=== PATIENT | female | born 1955 | race Caucasian/White ===

== ENCOUNTER 2016-11-27 14:48 | Observation (INO) | payer OTHER, BC ==
[2016-11-27 15:04] VITALS: BMI 19.0
[2016-11-27] MEDS ORDERED: SODIUM CHLORIDE 1,000 ML IV ONE (15:08)
[2016-11-27] MEDS ORDERED: ONDANSETRON 4 MG/2 ML VIAL ONE ×2 (15:13→15:26)
[2016-11-27] MEDS ORDERED: MAG HYDROX/AL HYDROX/SIMETH 355 ML ORAL.SUSP PO ONE (15:21)
[2016-11-27] MEDS ORDERED: FAMOTIDINE 20 MG/50 ML IVPB 20 MG in PREMIX 50 IVPB ONE (15:21)
--- NOTE | 2016-11-27 15:23 | PDOC ---
History of Present Illness - General History Source: Patient, Old Records Exam Limitations: No Limitations - History of Present Illness Initial Comments: 11/27/16 16:18 The patient is a 61 year old female, with a significant past medical history of cirrhosis, hepatitis C, DMII, GERD, hepatic encephalopathy, thrombocytopenia, previous broken left jaw, polysubstance abuse (alcohol and cocaine) and anxiety , who presents to the emergency department with nausea, vomiting and epigastric pain for the past week. The patient describes her epigastric pain as a burning sensation that radiates up her throat. She states that she initially began vomiting a clear liquid, but states that it has since turned to a black color. She reports that her last bowel movement was yesterday and it was normal. The patient denies fever, chills, diarrhea, melena or bpr. The patient denies chest pain or shortness of breath. She denies a past history of ulcers. She is requesting Dilaudid. Allergies: None reported. Social History: Polysubstance abuse (alcohol and cocaine). Past Surgical History: Left Knee Surgery ( x 4) , Jaw Surgery, and Tonsillectomy. PCP: Dr. 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 Dawson <Radha Rodriguez - Last Filed: 11/27/16 17:08> - History of Present Illness Travel History: No <Lawrence Marcos - Last Filed: 11/27/16 17:38> - General Chief Complaint: Nausea/Vomiting Stated Complaint: GI DISTRESS Time Seen by Provider: 11/27/16 15:02 Past History <Radha Rodriguez - Last Filed: 11/27/16 17:08> - Past Medical History Anemia: (THROMBOCYTOPENIA) Asthma: No Cancer: No Cardiac Disorders: No CVA: No COPD: No CHF: No Dementia: No Diabetes: Yes (IDDM) GI Disorders: Yes (PORTAL GASTROPATHY;GERD) Disorders: No HTN: No Hypercholesterolemia: No Liver Disease: Yes (ALCOHOLIC CIRRHOSIS; HEPATIC ENCEPHALOPATHY;) Seizures: No Thyroid Disease: No - Surgical History Abdominal Surgery: Yes (egd and colonoscopy 1 year ago) Appendectomy: No Cardiac Surgery: No Cholecystectomy: No Lung Surgery: No Neurologic Surgery: No Orthopedic Surgery: Yes (left knee surgery times 4) - Immunization History Immunization Up to Date: Yes - Psycho/Social/Smoking Cessation Hx Anxiety: No Suicidal Ideation: No Smoking Status: No Smoking History: Never smoked Have you smoked in the past 12 months: No Number of Cigarettes Smoked Daily: 0 Cigars Per Day: 0 Hx Alcohol Use: No (RECOVERING ALCOHOLIC) Drug/Substance Use Hx: Yes Substance Use Type: Alcohol, Cocaine Hx Substance Use Treatment: Yes <Lawrence Marcos - Last Filed: 11/27/16 17:38> - Past Medical History Allergies/Adverse Reactions: Allergies Allergy/AdvReac Type Severity Reaction Status Date / Time No Known Allergies Allergy Verified 11/02/16 05:15 Home Medications: Ambulatory Orders Insulin Lispro [Humalog] 0 unit SQ QID PRN 02/10/14 Alprazolam [Xanax] 0.25 mg PO HS PRN #7 tablet 02/12/14 Insulin (Levemir) [Levemir Flexpen -] 0 units SQ DAILY 12/05/14 Omeprazole [Prilosec] 20 mg PO BID #0 capsule. 12/08/14 Levofloxacin [Levaquin] 750 mg PO DAILY #10 tab 11/04/16 Magnesium Oxide [Mag-Ox -] 800 mg PO DAILY #4 tablet 11/04/16 Ranitidine [Zantac -] 150 mg PO DAILY #30 tablet 11/04/16 Review of Systems - Review of Systems Able to Perform ROS?: Yes Comments:: 11/27/16 16:18 CONSTITUTIONAL: No reported: Fever, Chills, Diaphoresis, Generalized Weakness, Malaise, Loss of Appetite HEENT: No reported: Rhinorrhea, Nasal Congestion, Throat Pain, Throat Swelling, Difficulty Swallowing, Mouth Swelling, Ear Pain, Eye Pain, Visual Changes CARDIOVASCULAR: No reported: Chest Pain, Syncope, Palpitations, Irregular Heart Rate, Lightheadedness, Peripheral Edema RESPIRATORY: No reported: Cough, Shortness of Breath, SOB with Exertion, Orthopnea, Wheezing , Stridor, Hemoptysis GASTROINTESTINAL: Reported: +Nausea, vomiting, epigastric pain No reported: Abdominal Distension, Diarrhea, Constipation, Melena, Hematochezia GENITOURINARY: No reported: Dysuria, Frequency, Urgency, Hesitancy, Flank Pain, Genital Pain MUSCULOSKELETAL: No reported: Myalgia, Arthralgia, Joint Swelling, Back pain, Neck Pain SKIN: No reported: Rash, Itching, Pallor HEMATOLOGIC/IMMUNOLOGIC: No reported: Easy Bleeding, Easy Bruising, Lymphadenopathy, Frequent infections ENDOCRINE: No reported: Unexplained Weight Gain, Unexplained Weight Loss, Heat Intolerance , Cold Intolerance NEUROLOGIC: No reported: Headache, Focal Weakness, Paresthesias, Vertigo, Lightheadedness, Unsteady Gait, Seizure, Mental Status Changes, Incontinence PSYCHIATRIC: No reported: Anxiety, Depression <Radha Rodriguez - Last Filed: 11/27/16 17:08> *Physical Exam - Vital Signs Last Vital Signs Temp Pulse Resp BP Pulse Ox 98.2 F 100 H 20 135/95 100 11/27/16 15:02 11/27/16 15:02 11/27/16 15:02 11/27/16 15:02 11/27/16 15:02 - Physical Exam Comments: 11/27/16 16:18 GENERAL: The patient is awake, alert, and fully oriented. Nontoxic - in no acute distress. HEAD: Normocephalic, atraumatic. EYES: Extraocular movements intact, sclera anicteric, conjunctiva clear. ENT: Normal voice, moist mucous membranes. NECK: Normal range of motion, supple. LUNGS: Breath sounds equal, clear to auscultation bilaterally. No wheezes, no rhonchi, no rales. HEART: Regular rate and rhythm, without murmur, rub or gallop. ABDOMEN: Mild epigastric tenderness. Soft, normoactive bowel sounds. No guarding, no rebound. No CVA tenderness. EXTREMITIES: Normal range of motion, no edema. No clubbing or cyanosis. No cords , erythema, or tenderness. NEUROLOGICAL: No facial asymmetry. Normal speech. PSYCH: Normal mood, normal affect. SKIN: Warm, dry, normal turgor. RECTAL EXAM: Brown stool. No hemorrhoids, no bleeding, no melena. <Radha Rodriguez - Last Filed: 11/27/16 17:08> - Vital Signs Last Vital Signs Temp Pulse Resp BP Pulse Ox 98.2 F 100 H 20 135/95 100 11/27/16 15:02 11/27/16 15:02 11/27/16 15:02 11/27/16 15:02 11/27/16 15:02 <Lawrence Marcos - Last Filed: 01/22/17 17:38> Heart Score/ECG Review - ECG Impressions Comment:: 11/27/16 15:26 Twelve-lead EKG was performed and reviewed by me. There is normal sinus rhythm with a normal rate. rate of 100 The axis is normal. qt interval of 497 There is normal R wave progression There are no ST or T wave abnormalities. <Lawrence Marcos - Last Filed: 11/27/16 17:38> ED Treatment Course - LABORATORY CBC & Chemistry Diagram: 11/27/16 15:13 11/27/16 15:13 - ADDITIONAL ORDERS Additional order review: Laboratory Results 11/27/16 15:13 Urine Color Yolie Urine Appearance Clear Urine pH 7.0 Ur Specific [place] 1.026 Urine Protein Negative Urine Glucose (UA) Negative Urine Ketones Trace H Urine Blood Negative Urine Nitrite Negative Urine Bilirubin Negative Urine Urobilinogen 4.0 e.u/dl H Ur Leukocyte Esterase Negative 11/27/16 15:13 RBC 4.11 D MCV 89.1 MCHC 33.0 RDW 16.3 H MPV 10.6 D Neutrophils % 68.0 Lymphocytes % 21.4 D Monocytes % 8.5 D Eosinophils % 1.4 D Basophils % 0.7 - Medications Given in the ED: ED Medications Discontinued Medications Generic Name Dose Route Start Last Admin Trade Name Freq PRN Reason Stop Dose Admin Al Hydroxide/Mg Hydroxide 30 ml 11/27/16 15:21 11/27/16 15:31 Mylanta Suspension - PO 11/27/16 15:22 30 ml ONCE ONE Administration <Radha Rodriguez - Last Filed: 11/27/16 17:08> - LABORATORY CBC & Chemistry Diagram: 11/27/16 15:13 11/27/16 15:13 <Lawrence Marcos - Last Filed: 11/27/16 17:38> Medical Decision Making - Medical Decision Making 11/27/16 16:[address] Dawson at at 16:59. Referred to answering service, awaiting callback. Dr. Ga, covering for Dr. Dawson, returned call at 15:07. Case discussed. <Radha Rodriguez - Last Filed: 11/27/16 17:08> - Medical Decision Making 11/27/16 15:22 61y F hx of dm, hcv cirrhosis, gerd, thrombocytopenia, polycusbstance abuse presents with complaint of burnin gepigastric pain that is radiating up to her throat, associated with vomiting that was originally clear and was recently black in color - no associated diarrhea, melena, bpr. on exam the pt is in no acute distress, abd nontender suspect gastritis/gerd will ck labs to r/o anemia, pancreatitis, will ck stool guaiac to r/o blood. will treat symptomatically with pepcid/maalox/zofran?/fluids screening ekg for acs 11/27/16 17:06 The patient's blood work was reviewed the patient is currently not anemic However as the patient does have an extensive history of alcohol abuse, as well as thrombocytopenia with a platelet level of 31, and guaiac positive stool pt given dose of protonox 40mg IV 11/27/16 17:17 case d/w lucia burns and dr. ga agreed with observation due to concerns per dr. ga (covering for [facility]) states that pt is a service case [facility] pt well appearing, in no distress vitals normal Case discussed in detail with admitting physician including history, physical exam and ancillary studies. Admitting physician has assumed care for the patient, will follow all pending diagnostics and will complete the evaluation and treatment. A portion of this note was documented by scribe services under my direction. I have reviewed the details of the note, within reason, and agree with the documentation with the following case summary and management plan written by me <Lawrence Marcos - Last Filed: 11/27/16 17:38> *DC/Admit/Observation/Transfer - Attestations Scribe Attestion: 11/27/16 15:31 Documentation prepared by Radha Rodriguez, acting as medical administrative specialist for Lawrence Marcos MD. <Radha Rodriguez - Last Filed: 11/27/16 17:08> - Discharge Dispostion Admit: Yes <Lawrence Marcos - Last Filed: 11/27/16 17:38> Diagnosis at time of Disposition: Thrombocytopenia Gastritis Qualifiers: Gastritis type: alcoholic Chronicity: acute Gastritis bleeding: with bleeding Qualified Code(s): K29.21 - Alcoholic gastritis with bleeding - Referrals Referrals: Marshal Rossi MD [Primary Care Provider] -
[2016-11-27 15:25] LABS: BASOPHIL 0.7 % (0-2.0); EOSINOPHIL 1.4 % (0-4.5); MCH 29.4 pg (25.7-33.7); MEAN CELL VOLUME 89.1 fl (80-96); MEAN PLT VOLUME 10.6 fl (7.5-11.1); RDW 16.3 % (11.6-15.6); WHITE BLOOD COUNT 3.2 K/mm3 (4.0-10.0)
[2016-11-27] MEDS ORDERED: FAMOTIDINE 20 MG/50 ML IVPB 50 ML IVPB ONE (15:26)
[2016-11-27] MEDS ORDERED: MAG HYDROX/AL HYDROX/SIMETH 30 ML UNIT-DOSE CUP ONE (15:26)
[2016-11-27 15:27] LABS: URINE APPEARANCE CLEAR; URINE BILIRUBIN NEGATIVE (NEGATIVE); URINE BLOOD NEGATIVE (NEGATIVE); URINE COLOR AMBER; URINE GLUCOSE (UA) NEGATIVE (NEGATIVE); URINE KETONE TRACE (NEGATIVE); URINE LEUK ESTERASE NEGATIVE (NEGATIVE); URINE NITRITE NEGATIVE (NEGATIVE); URINE PROTEIN NEGATIVE (NEGATIVE); URINE UROBILINOGEN 4.0 E.U/dl E.U./dl (0.2-1.0)
[2016-11-27 15:30] LABS: PLATELET COUNT 31 K/MM3 (134-434)
[2016-11-27 16:05] LABS: ALBUMIN 3.6 g/dl (3.4-5.0); ALK PHOS 117 U/L (45-117); ANION GAP 12 (8-16); BILIRUBIN,TOTAL 2.6 mg/dL (0.2-1.0); CALCIUM 8.9 mg/dL (8.5-10.1); CO2 24 mmol/L (21-32); CREATININE 0.9 mg/dL (0.55-1.02); GLUCOSE,RANDOM 218 mg/dL (74-106); SGPT/ALT 50 U/L (12-78); TOT PROT 7.1 g/dl (6.4-8.2)
[2016-11-27] MEDS ORDERED: HYDROmorphone HCL CARPU-JECT 1 MG/1 ML DISP.SYRIN IVPUSH ONE (16:37)
[2016-11-27] MEDS ORDERED: HYDROmorphone HCL CARPU-JECT 1 MG/1 ML DISP.SYRIN ONE ×2 (16:41→22:21)
[2016-11-27 16:44] LABS: MAGNESIUM 1.6 mg/dL (1.8-2.4); SGOT/AST 98 U/L (15-37)
[2016-11-27] MEDS ORDERED: PANTOPRAZOLE SODIUM 40 MG in SODIUM CHLORIDE 100 ML IVPB ONE ×2 (17:05→18:47)
[2016-11-27] MEDS ORDERED: PANTOPRAZOLE SODIUM 40 MG VIAL ONE (17:11)
[2016-11-27 17:35] LABS: INR 1.39 (0.82-1.09); PROTHROMBIN TIME (PATIENT) 15.4 SEC (9.98-11.88)
[2016-11-27] MEDS: SODIUM CHLORIDE 1,000 ML IV SCH (18:44)
--- NOTE | 2016-11-27 18:54 | HP ---
CHIEF COMPLAINT: Hematemesis. PCP: Flo Araya MD HISTORY OF PRESENT ILLNESS: The patient is a 61 year old female with a significant PMH of cirrhosis, hepatitis C, DM type 2, GERD, hepatic encephalopathy, thrombocytopenia, who presents with nausea, vomiting and epigastric pain for the past week. She started vomiting clear liquid a week ago and 3 days ago she had multiple episodes of brownish vomit. No more episodes since then. The patient describes her epigastric pain as a burning sensation that radiates up to her throat. She denies change in bowel habits, blood in stool, diarrhea, constipation, back pain. She reports that her last bowel movement was yesterday and it was normal. The patient denies fever, chills, chest pain, cough or shortness of breath. She denies dysuria, increased urgency, frequency. ER course was notable for: (1)Lipase (2)Plt, Mg (3)FOBT, EKG PAST MEDICAL HISTORY: cirrhosis, hepatitis C, DM type 2, GERD, hepatic encephalopathy, thrombocytopenia, previous broken jaw, polysubstance abuse (alcohol and cocaine) , anxiety PAST SURGICAL HISTORY: Left Knee Surgery ( x 4) , Jaw Surgery, and Tonsillectomy Social History: Smoking:Denies Alcohol:Former drinker, quit last year Drugs:used to take cocaine Family History: Mother: HTN, Alzheimer's Father;Cancer Allergies: No Known Allergies Allergy (Verified 11/02/16 05:15) HOME MEDICATIONS: Medication Instructions Recorded Insulin Lispro [Humalog] 0 unit SQ QID PRN 02/10/14 Alprazolam [Xanax] 0.25 mg PO HS PRN #7 tablet 02/12/14 Insulin (Levemir) [Levemir Flexpen 0 units SQ DAILY 12/05/14 -] Omeprazole [Prilosec] 20 mg PO BID #0 capsule. 12/08/14 Levofloxacin [Levaquin] 750 mg PO DAILY #10 tab 11/04/16 Magnesium Oxide [Mag-Ox -] 800 mg PO DAILY #4 tablet 11/04/16 Ranitidine [Zantac -] 150 mg PO DAILY #30 tablet 11/04/16 REVIEW OF SYSTEMS CONSTITUTIONAL: Absent: fever, chills, diaphoresis, generalized weakness, malaise, loss of appetite, weight change HEENT: Absent: rhinorrhea, nasal congestion, throat pain, throat swelling, difficulty swallowing, mouth swelling, ear pain, eye pain, visual changes CARDIOVASCULAR: Absent: chest pain, syncope, palpitations, irregular heart rate, lightheadedness , peripheral edema RESPIRATORY: Absent: cough, shortness of breath, dyspnea with exertion, orthopnea, wheezing, stridor, hemoptysis GASTROINTESTINAL: Absent: abdominal pain, abdominal distension, nausea, vomiting, diarrhea, constipation, melena, hematochezia GENITOURINARY: Absent: dysuria, frequency, urgency, hesitancy, hematuria, flank pain, genital pain MUSCULOSKELETAL: Absent: myalgia, arthralgia, joint swelling, back pain, neck pain SKIN: Absent: rash, itching, pallor HEMATOLOGIC/IMMUNOLOGIC: Absent: easy bleeding, easy bruising, lymphadenopathy, frequent infections ENDOCRINE: Absent: unexplained weight gain, unexplained weight loss, heat intolerance, cold intolerance NEUROLOGIC: Absent: headache, focal weakness or paresthesias, dizziness, unsteady gait, seizure, mental status changes, bladder or bowel incontinence PSYCHIATRIC: Absent: anxiety, depression, suicidal or homicidal ideation, hallucinations. PHYSICAL EXAMINATION Vital Signs - 24 hr 11/27/16 15:02 Temperature 98.2 F Pulse Rate 100 H Respiratory 20 Rate Blood Pressure 135/95 O2 Sat by Pulse 100 Oximetry (%) GENERAL: Awake, alert, and fully oriented, in no acute distress. HEAD: Normal with no signs of trauma. EYES: Pupils equal, round and reactive to light, extraocular movements intact, sclera anicteric, conjunctiva clear. No lid lag. EARS, NOSE, THROAT: Ears normal, nares patent, oropharynx clear without exudates. Moist mucous membranes. NECK: Normal range of motion, supple without lymphadenopathy, JVD, or masses. LUNGS: Breath sounds equal, clear to auscultation bilaterally. No wheezes, and no crackles. No accessory muscle use. HEART: Regular rate and rhythm, normal S1 and S2 without murmur, rub or gallop. ABDOMEN: Soft, nontender, not distended, normoactive bowel sounds, no guarding, no rebound, no masses. No hepatomegaly or splenomegaly. MUSCULOSKELETAL: Normal range of motion at all joints. No bony deformities or tenderness. No CVA tenderness. UPPER EXTREMITIES: 2+ pulses, warm, well-perfused. No cyanosis. No clubbing. Cap refill <2 seconds. No peripheral edema. LOWER EXTREMITIES: 2+ pulses, warm, well-perfused. No calf tenderness. No peripheral edema. NEUROLOGICAL: Cranial nerves II-XII intact. Normal speech. Normal gait. PSYCHIATRIC: Cooperative. Good eye contact. Appropriate mood and affect. SKIN: Warm, dry, normal turgor, no rashes or lesions noted. Laboratory Results - last 24 hr 11/27/16 11/27/16 11/27/16 15:13 15:13 15:13 WBC 3.2 L D RBC 4.11 D Hgb 12.1 D Hct 36.6 D MCV 89.1 MCHC 33.0 RDW 16.3 H Plt Count 31 L* D MPV 10.6 D Neutrophils % 68.0 Lymphocytes % 21.4 D Monocytes % 8.5 D Eosinophils % 1.4 D Basophils % 0.7 INR Sodium 140 Potassium 3.8 Chloride 104 Carbon Dioxide 24 Anion Gap 12 BUN 23 H D Creatinine 0.9 D Creat Clearance w eGFR > 60 Random Glucose 218 H D Calcium 8.9 Magnesium 1.6 L Total Bilirubin 2.6 H D AST 98 H ALT 50 D Alkaline Phosphatase 117 Total Protein 7.1 Albumin 3.6 Lipase 65 L Urine Color Yolie Urine Appearance Clear Urine pH 7.0 Ur Specific Jolon 1.026 Urine Protein Negative Urine Glucose (UA) Negative Urine Ketones Trace H Urine Blood Negative Urine Nitrite Negative Urine Bilirubin Negative Urine Urobilinogen 4.0 e.u/dl H Ur Leukocyte Esterase Negative Stool Occult Blood Alcohol, Quantitative 11/27/16 11/27/16 11/27/16 16:30 17:15 17:15 WBC RBC Hgb Hct MCV MCHC RDW Plt Count MPV Neutrophils % Lymphocytes % Monocytes % Eosinophils % Basophils % INR 1.39 H Sodium Potassium Chloride Carbon Dioxide Anion Gap BUN Creatinine Creat Clearance w eGFR Random Glucose Calcium Magnesium Total Bilirubin AST ALT Alkaline Phosphatase Total Protein Albumin Lipase Urine Color Urine Appearance Urine pH Ur Specific Jolon Urine Protein Urine Glucose (UA) Urine Ketones Urine Blood Urine Nitrite Urine Bilirubin Urine Urobilinogen Ur Leukocyte Esterase Stool Occult Blood Positive Alcohol, Quantitative < 5.0 ASSESSMENT/PLAN: The patient is a 61 year old female with a significant PMH of cirrhosis, hepatitis C, DM type 2, GERD, hepatic encephalopathy, thrombocytopenia, who presents with nausea, vomiting and epigastric pain for the past week. She started vomiting clear liquid a week ago and 3 days ago she had multiple episodes of brownish vomit. No more episodes since then. The patient describes her epigastric pain as a burning sensation that radiates up to her throat. She is placed on observation for Upper GI bleed. Upper GI bleed: r/o Gastric ulcer/Gastritis/Pancreatitis/ACS -NPO -Protonix 40 mg IV Daily -GI consultation -f/u CBC -FOBT positive -monitor vitals -lipase elevated, no need tor amylase -Dilaudid 1 mg IVQ6H DM type 2: -ISS ACHS -BGM ACHS Thrombocytopenia; -monitor Hypomagnesemia: -supplemented in ED -f/u in AM DVT PPX: -SCDs -no Heparin due to bleeding GI PPX: on Protonix Disposition: Placed in observation Visit type - Emergency Visit Emergency Visit: Yes ED Registration Date: 11/27/16 Care time: The patient presented to the Emergency Department on the above date and was hospitalized for further evaluation of their emergent condition. - New Patient This patient is new to me today: Yes Date on this admission: 11/28/16 - Critical Care Critical Care patient: No
[2016-11-27 19:10] LABS: URINE MARIJUANA THC NEGATIVE ng/ml (CUTOFF=50)
--- NOTE | 2016-11-27 19:12 | PN ---
Teaching Attending Note Name of Resident: Darlyn Rojo ATTENDING PHYSICIAN STATEMENT I saw and evaluated the patient. I reviewed the resident's note and discussed the case with the resident. I agree with the resident's findings and plan as documented. SUBJECTIVE: This is a 61-year-old woman who presented to the ER complaining of epigastric pain with nausea and vomiting. She reports vomiting black fluid. She denies rectal bleeding, melena. OBJECTIVE: Vital Signs Period Temp Pulse Resp BP Sys/Dueñas Pulse Ox Last 24 Hr 98.2 F 100 20 135/95 100 HEART: S1 S2, RRR LUNGS: Clear ABDOMEN: Soft, non-distended, mild epigastric tenderness, normal BS EXTREMITIES: No edema ASSESSMENT AND PLAN: This is a 61-year-old woman with a history of cirrhosis, hepatitis C, alcohol abuse, type 2 DM, GERD, anxiety, HTN, thrombocytopenia who comes to the ER because of epigastric pain with nausea and vomiting. 1. Epigastric pain with nausea and vomiting - Likely secondary to gastritis - Possible PUD - Possible UGI bleed - Monitor hemoglobin - Protonix IV - NPO - IV fluid 2. Thrombocytopenia - Chronic secondary to liver disease - Monitor platelets 3. Cirrhosis 4. Hepatitis C 5. Hypertension 6. Type 2 diabetes mellitus - Hold Levemir - Fingersticks with Novolog sliding scale 7. GERD 8. Anxiety - Continue Xanax as needed 9. History of alcohol and cocaine abuse
[2016-11-27] MEDS ORDERED: PANTOPRAZOLE SODIUM 100 ML IVPB SCH (19:15)
[2016-11-27 22:10] LABS: MCH 29.3 pg (25.7-33.7); MCHC 32.6 g/dl (32.0-36.0); MEAN PLT VOLUME 10.5 fl (7.5-11.1); RDW 16.2 % (11.6-15.6); WHITE BLOOD COUNT 2.4 K/mm3 (4.0-10.0)
[2016-11-27 22:23] LABS: PLATELET COUNT 25 K/MM3 (134-434)
[2016-11-27] MEDS: HYDROmorphone HCL CARPU-JECT 1 MG/1 ML DISP.SYRIN IVPB PRN (22:26)
--- NOTE | 2016-11-27 23:18 | EKG ---
Test Reason : Blood Pressure : / mmHG Vent. Rate : 100 BPM Atrial Rate : 100 BPM P-R Int : 118 ms QRS Dur : 074 ms QT Int : 386 ms P-R-T Axes : 035 000 026 degrees QTc Int : 497 ms NORMAL SINUS RHYTHM POSSIBLE LEFT ATRIAL ENLARGEMENT PROLONGED QT ABNORMAL ECG WHEN COMPARED WITH ECG OF 04-NOV-2016 08:47, NO SIGNIFICANT CHANGE WAS FOUND Confirmed by BUNNY LEONARD MD ([id number]) on 11/27/2016 11:18:07 PM Referred By: Confirmed By:BUNNY LEONARD MD
[2016-11-27] MEDS: INSULIN SLIDING SCALE (NOVOLOG) 1 VIAL SQ SCH (23:35)
[2016-11-28] MEDS ORDERED: HYDROmorphone HCL CARPU-JECT 1 MG/1 ML DISP.SYRIN ONE ×3 (03:59→22:43)
[2016-11-28] MEDS: HYDROmorphone HCL CARPU-JECT 1 MG/1 ML DISP.SYRIN IVPB PRN ×3 (04:35→23:30)
[2016-11-28 07:53] LABS: CALCIUM 8.6 mg/dL (8.5-10.1); CREATININE 0.8 mg/dL (0.55-1.02)
[2016-11-28] MEDS: INSULIN SLIDING SCALE (NOVOLOG) 1 VIAL SQ SCH ×4 (09:42→23:57)
[2016-11-28] MEDS ORDERED: PANTOPRAZOLE SODIUM 100 ML IVPB ONE (09:43)
[2016-11-28] MEDS: SODIUM CHLORIDE 1,000 ML IV SCH ×2 (09:53→18:46)
[2016-11-28 14:08] LABS: MCH 29.9 pg (25.7-33.7); MCHC 33.1 g/dl (32.0-36.0); MEAN CELL VOLUME 90.4 fl (80-96); MEAN PLT VOLUME 9.2 fl (7.5-11.1); RDW 16.1 % (11.6-15.6)
[2016-11-28 14:17] LABS: WHITE BLOOD COUNT 1.8 K/mm3 (4.0-10.0)
[2016-11-28 14:18] LABS: PLATELET COUNT 18 K/MM3 (134-434)
--- NOTE | 2016-11-28 16:11 | PN ---
Teaching Attending Note Name of Resident: Darlyn Rojo ATTENDING PHYSICIAN STATEMENT I saw and evaluated the patient. I reviewed the resident's note and discussed the case with the resident. I agree with the resident's findings and plan as documented. SUBJECTIVE: Patient is still nausea and vomiting , feeling weak. OBJECTIVE: Vital Signs Temperature 98.6 F 11/28/16 09:54 Pulse Rate 18 L 11/28/16 09:54 Respiratory Rate 16 11/28/16 06:59 Blood Pressure 127/51 11/28/16 09:54 O2 Sat by Pulse Oximetry (%) 100 11/28/16 11:36 GENERAL: Awake, alert, and fully oriented, in no acute distress. HEAD: Normal with no signs of trauma. EYES: Pupils equal, round and reactive to light, extraocular movements intact, sclera anicteric, conjunctiva clear. EARS, NOSE, THROAT: Ears normal, oropharynx clear without exudates. Moist mucous membranes. NECK: Normal range of motion, supple without lymphadenopathy, JVD, or masses. LUNGS: Breath sounds equal, clear to auscultation bilaterally. No wheezes, and no crackles. No accessory muscle use. HEART: Regular rate and rhythm, normal S1 and S2 without murmur, rub or gallop. ABDOMEN: Soft, nontender, distended due to liver cirrhosis, normoactive bowel sounds, NG,NR, no masses. positive for hepatomegaly MUSCULOSKELETAL: Normal range of motion at all joints. No bony deformities or tenderness. No CVA tenderness. EXTREMITIES: 2+ pulses, warm, well-perfused. No calf tenderness. No peripheral edema. NEUROLOGICAL: Cranial nerves II-XII intact. Normal speech. Normal gait. PSYCHIATRIC: Cooperative. Good eye contact. Appropriate mood and affect. SKIN: Warm, dry, normal turgor, no rashes or lesions noted. CBCD WBC 1.8 K/mm3 (4.0-10.0) L 11/28/16 14:00 RBC 3.21 M/mm3 (3.60-5.2) L 11/28/16 14:00 Hgb 9.6 GM/dL (10.7-15.3) L 11/28/16 14:00 Hct 29.0 % (32.4-45.2) L 11/28/16 14:00 MCV 90.4 fl (80-96) 11/28/16 14:00 MCHC 33.1 g/dl (32.0-36.0) 11/28/16 14:00 RDW 16.1 % (11.6-15.6) H 11/28/16 14:00 Plt Count 18 K/MM3 (134-434) L* D 11/28/16 14:00 MPV 9.2 fl (7.5-11.1) D 11/28/16 14:00 CMP Sodium 146 mmol/L (136-145) H 11/28/16 06:20 Potassium 4.7 mmol/L (3.5-5.1) D 11/28/16 06:20 Chloride 111 mmol/L (98-107) H 11/28/16 06:20 Carbon Dioxide 24 mmol/L (21-32) 11/28/16 06:20 Anion Gap 11 (8-16) 11/28/16 06:20 BUN 22 mg/dL (7-18) H 11/28/16 06:20 Creatinine 0.8 mg/dL (0.55-1.02) 11/28/16 06:20 Creat Clearance w eGFR > 60 (>60) 11/27/16 15:13 Random Glucose 128 mg/dL (74-106) H D 11/28/16 06:20 Calcium 8.6 mg/dL (8.5-10.1) 11/28/16 06:20 Total Bilirubin 2.6 mg/dL (0.2-1.0) H D 11/27/16 15:13 AST 98 U/L (15-37) H 11/27/16 15:13 ALT 50 U/L (12-78) D 11/27/16 15:13 Alkaline Phosphatase 117 U/L (45-117) 11/27/16 15:13 Total Protein 7.1 g/dl (6.4-8.2) 11/27/16 15:13 Albumin 3.6 g/dl (3.4-5.0) 11/27/16 15:13 Current Medications Generic Name Dose Route Start Last Admin Trade Name Freq PRN Reason Stop Dose Admin Hydromorphone HCl 1 mg 11/27/16 18:44 11/28/16 04:35 Dilaudid Injection - IVPB 1 mg Q6H PRN Administration PAIN Sodium Chloride 1,000 mls @ 100 mls/hr 11/27/16 18:45 11/28/16 09:53 Normal Saline - IV 100 mls/hr ASDIR MIKE Administration Pantoprazole Sodium 100 mls @ 200 mls/hr 11/27/16 19:15 11/28/16 09:53 Protonix 40mg Ivpb (Pre-Docked) IVPB 200 mls/hr DAILY MIKE Administration Insulin Aspart 1 vial 11/27/16 22:00 11/28/16 11:22 Novolog Vial Sliding Scale - SQ Not Given ACHS [facility] Protocol Medication Instructions Recorded Insulin Lispro [Humalog] 0 unit SQ QID PRN 02/10/14 Alprazolam [Xanax] 0.25 mg PO HS PRN #7 tablet 02/12/14 Insulin (Levemir) [Levemir Flexpen 0 units SQ DAILY 12/05/14 -] Levofloxacin [Levaquin] 750 mg PO DAILY #10 tab 11/04/16 Magnesium Oxide [Mag-Ox -] 800 mg PO DAILY #4 tablet 11/04/16 Ranitidine [Zantac -] 150 mg PO DAILY #30 tablet 11/04/16 Amitriptyline HCl [Elavil -] 25 mg PO DAILY 11/27/16 Omeprazole [Prilosec] 40 mg PO DAILY 11/27/16 ASSESSMENT AND PLAN: This is a 61-year-old woman with a history of cirrhosis, hepatitis C, alcohol abuse, type 2 DM, GERD, anxiety, HTN, thrombocytopenia who comes to the ER because of epigastric pain with nausea and vomiting. # Thrombocytopenia Chronic with UGI bleed due to possible gastritis , and thrombocytopenia due to liver disease , will transfuse one single donor platelets. will continue to monitor platelets since platelets dropped further to 18K # Epigastric pain likely secondary to PUD ,with Possible UGI bleed ,will monitor hemoglobin, Protonix IV , No further bleed at this time, will feed the patient, GI consult appreciated. # Liver Cirrhosis due Hepatitis C, Hx of alcohol and cocaine abuse # Hepatitis C # Hypertension # Type 2 diabetes mellitus Hold Levemir, Fingersticks with Novolog sliding scale # GERD # Anxiety Continue Xanax as needed # History of alcohol and cocaine abuse
--- NOTE | 2016-11-28 17:02 | PN ---
Physical Exam: SUBJECTIVE: Patient seen and examined. She is still complaining of abdominal pain. Denies taking any illicid drugs recently. She was counseled to avoid alcohol and drugs with her liver condition. She denies more episodes of vomiting , nausea, diarrhea. She requested diet order. OBJECTIVE: Vital Signs Period Temp Pulse Resp BP Sys/Dueñas Pulse Ox Last 24 Hr 98.3 F-98.9 F 18-100 16-20 98-156/51-92 96-100 GENERAL: The patient is awake, alert, and fully oriented, in no acute distress. HEAD: Normal with no signs of trauma. EYES: PERRL, extraocular movements intact, sclera anicteric, conjunctiva yellow. No ptosis. ENT: Ears normal, nares patent, oropharynx clear without exudates, moist mucous membranes. NECK: Trachea midline, full range of motion, supple. LUNGS: Breath sounds equal, clear to auscultation bilaterally, no wheezes, no crackles, no accessory muscle use. HEART: Regular rate and rhythm, S1, S2 without murmur, rub or gallop. ABDOMEN: Soft, nontender, nondistended, normoactive bowel sounds, no guarding, no rebound, no hepatosplenomegaly, no masses. EXTREMITIES: 2+ pulses, warm, well-perfused, no edema. NEUROLOGICAL: Cranial nerves II through XII grossly intact. Normal speech, gait not observed. PSYCH: Normal mood, normal affect. SKIN: Warm, dry, normal turgor, no rashes or lesions noted Laboratory Results - last 24 hr 11/27/16 11/27/16 11/28/16 18:15 22:00 06:20 WBC 2.4 L RBC 3.48 L Hgb 10.2 L D Hct 31.3 L MCV 90.0 MCHC 32.6 RDW 16.2 H Plt Count 25 L* MPV 10.5 Sodium 146 H Potassium 4.7 D Chloride 111 H Carbon Dioxide 24 Anion Gap 11 BUN 22 H Creatinine 0.8 POC Glucometer Random Glucose 128 H D Calcium 8.6 Opiates Screen Positive Methadone Screen Negative Barbiturate Screen Negative Phencyclidine Screen Negative Ur Amphetamines Screen Negative MDMA (Ecstasy) Screen Negative Benzodiazepines Screen Negative Cocaine Screen Positive U Marijuana (THC) Screen Negative 11/28/16 11/28/16 11/28/16 06:50 11:17 14:00 WBC 1.8 L RBC 3.21 L Hgb 9.6 L Hct 29.0 L MCV 90.4 MCHC 33.1 RDW 16.1 H Plt Count 18 L* D MPV 9.2 D Sodium Potassium Chloride Carbon Dioxide Anion Gap BUN Creatinine POC Glucometer [phone] Random Glucose Calcium Opiates Screen Methadone Screen Barbiturate Screen Phencyclidine Screen Ur Amphetamines Screen MDMA (Ecstasy) Screen Benzodiazepines Screen Cocaine Screen U Marijuana (THC) Screen Active Medications Generic Name Dose Route Start Last Admin Trade Name Freq PRN Reason Stop Dose Admin Hydromorphone HCl 1 mg 11/27/16 18:44 11/28/16 16:25 Dilaudid Injection - IVPB 1 mg Q6H PRN Administration PAIN Sodium Chloride 1,000 mls @ 100 mls/hr 11/27/16 18:45 11/28/16 09:53 Normal Saline - IV 100 mls/hr ASDIR MIKE Administration Pantoprazole Sodium 100 mls @ 200 mls/hr 11/27/16 19:15 11/28/16 09:53 Protonix 40mg Ivpb (Pre-Docked) IVPB 200 mls/hr DAILY MIKE Administration Insulin Aspart 1 vial 11/27/16 22:00 11/28/16 11:22 Novolog Vial Sliding Scale - SQ Not Given ACHS MIKE Protocol ASSESSMENT/PLAN: The patient is a 61 year old female with a significant PMH of cirrhosis, hepatitis C, DM type 2, GERD, hepatic encephalopathy, thrombocytopenia, who presents with nausea, vomiting and epigastric pain for the past week. She started vomiting clear liquid a week ago and 3 days ago she had multiple episodes of brownish vomit. No more episodes since then. The patient describes her epigastric pain as a burning sensation that radiates up to her throat. She is placed on observation for Upper GI bleed. Upper GI bleed: r/o Gastric ulcer/Gastritis/Pancreatitis/ACS -NPO changed to clear liquid -Protonix 40 mg IV Daily -GI consultation -f/u CBC -FOBT positive -monitor vitals -lipase elevated, no need tor amylase -Dilaudid 1 mg IVQ6H DM type 2: -ISS ACHS -BGM ACHS Pancytopenia; -PLT 18 today, we ordered 1 u of platelets -f/u BMP in AM -probably due to liver disease Hypomagnesemia: -supplemented in ED DVT PPX: -SCDs -no Heparin due to bleeding GI PPX: on Protonix Disposition: Admitted to med surg. Problem List - Problems (1) Gastritis Code(s): K29.70 - GASTRITIS, UNSPECIFIED, WITHOUT BLEEDING Qualifiers: Gastritis type: alcoholic Chronicity: acute Gastritis bleeding: with bleeding Qualified Code(s): K29.21 - Alcoholic gastritis with bleeding (2) Pancytopenia Code(s): D61.818 - OTHER PANCYTOPENIA (3) Thrombocytopenia Code(s): D69.6 - THROMBOCYTOPENIA, UNSPECIFIED (4) Alcoholic hepatitis Code(s): K70.10 - ALCOHOLIC HEPATITIS WITHOUT ASCITES (5) GERD (gastroesophageal reflux disease) Code(s): K21.9 - GASTRO-ESOPHAGEAL REFLUX DISEASE WITHOUT ESOPHAGITIS Visit type - Emergency Visit Emergency Visit: Yes ED Registration Date: 11/27/16 Care time: The patient presented to the Emergency Department on the above date and was hospitalized for further evaluation of their emergent condition. - New Patient This patient is new to me today: No - Critical Care Critical Care patient: No - Discharge Referral Referred to [facility] Med P.C.: No
--- NOTE | 2016-11-28 20:10 | PN ---
Progress Note (short form) - Note Progress Note: Consult dictated No GI interventions planned Advised Ms. Nguyễn that she is being terminated from the office given her continued / repeated non-compliance and continued alcohol abuse Monitor for etoh withdrawal Can offer follow-up at the [facility] GI clinic [phone]
[2016-11-29] MEDS ORDERED: HYDROmorphone HCL CARPU-JECT 1 MG/1 ML DISP.SYRIN ONE (05:53)
[2016-11-29] MEDS: HYDROmorphone HCL CARPU-JECT 1 MG/1 ML DISP.SYRIN IVPB PRN (06:55)
[2016-11-29] MEDS: INSULIN SLIDING SCALE (NOVOLOG) 1 VIAL SQ SCH (07:21)
[2016-11-29 07:23] VITALS: BP 122/65; PULSE 91; TEMP 98.5
[2016-11-29 08:15] LABS: MCH 29.9 pg (25.7-33.7); MCHC 32.9 g/dl (32.0-36.0); MEAN CELL VOLUME 90.8 fl (80-96); MEAN PLT VOLUME 9.2 fl (7.5-11.1); RDW 15.6 % (11.6-15.6)
[2016-11-29 08:20] LABS: PLATELET COUNT 24 K/MM3 (134-434); WHITE BLOOD COUNT 1.5 K/mm3 (4.0-10.0)
[2016-11-29 08:50] LABS: CALCIUM 8.2 mg/dL (8.5-10.1)
[2016-11-29 08:51] LABS: CREATININE 0.7 mg/dL (0.55-1.02)
--- NOTE | 2016-11-29 11:36 | PN ---
Teaching Attending Note Name of Resident: Darlyn Rojo ATTENDING PHYSICIAN STATEMENT I saw and evaluated the patient. I reviewed the resident's note and discussed the case with the resident. I agree with the resident's findings and plan as documented. SUBJECTIVE: Patient is feeling and looking better , no further bleed. no nausea or vomiting. no headache, no shortness of breath. OBJECTIVE: Vital Signs Temperature 98.5 F 11/29/16 07:22 Pulse Rate 91 H 11/29/16 07:22 Respiratory Rate 20 11/29/16 07:22 Blood Pressure 122/65 11/29/16 07:22 O2 Sat by Pulse Oximetry (%) 98 11/28/16 21:00 GENERAL: Awake, alert, and fully oriented, in no acute distress. HEAD: Normal with no signs of trauma. EYES: Pupils equal, round and reactive to light, extraocular movements intact, sclera anicteric, conjunctiva clear. EARS, NOSE, THROAT: Ears normal, oropharynx clear without exudates. Moist mucous membranes. NECK: Normal range of motion, supple without lymphadenopathy, JVD, or masses. LUNGS: Breath sounds equal, clear to auscultation bilaterally. No wheezes, and no crackles. No accessory muscle use. HEART: Regular rate and rhythm, normal S1 and S2 without murmur, rub or gallop. ABDOMEN: Soft, nontender, distended due to liver cirrhosis, normoactive bowel sounds, NG,NR, no masses. positive for hepatomegaly MUSCULOSKELETAL: Normal range of motion at all joints. No bony deformities or tenderness. No CVA tenderness. EXTREMITIES: 2+ pulses, warm, well-perfused. No calf tenderness. No peripheral edema. NEUROLOGICAL: Cranial nerves II-XII intact. Normal speech. Normal gait. PSYCHIATRIC: Cooperative. Good eye contact. Appropriate mood and affect. SKIN: Warm, dry, normal turgor, no rashes or lesions noted. CBCD WBC 1.5 K/mm3 (4.0-10.0) L 11/29/16 07:15 RBC 3.02 M/mm3 (3.60-5.2) L 11/29/16 07:15 Hgb 9.0 GM/dL (10.7-15.3) L 11/29/16 07:15 Hct 27.4 % (32.4-45.2) L 11/29/16 07:15 MCV 90.8 fl (80-96) 11/29/16 07:15 MCHC 32.9 g/dl (32.0-36.0) 11/29/16 07:15 RDW 15.6 % (11.6-15.6) 11/29/16 07:15 Plt Count 24 K/MM3 (134-434) L* D 11/29/16 07:15 MPV 9.2 fl (7.5-11.1) 11/29/16 07:15 CMP Sodium 141 mmol/L (136-145) 11/29/16 07:15 Potassium 3.7 mmol/L (3.5-5.1) D 11/29/16 07:15 Chloride 107 mmol/L (98-107) 11/29/16 07:15 Carbon Dioxide 24 mmol/L (21-32) 11/29/16 07:15 Anion Gap 10 (8-16) 11/29/16 07:15 BUN 14 mg/dL (7-18) D 11/29/16 07:15 Creatinine 0.7 mg/dL (0.55-1.02) 11/29/16 07:15 Creat Clearance w eGFR > 60 (>60) 11/27/16 15:13 Random Glucose 83 mg/dL (74-106) D 11/29/16 07:15 Calcium 8.2 mg/dL (8.5-10.1) L 11/29/16 07:15 Total Bilirubin 2.6 mg/dL (0.2-1.0) H D 11/27/16 15:13 AST 98 U/L (15-37) H 11/27/16 15:13 ALT 50 U/L (12-78) D 11/27/16 15:13 Alkaline Phosphatase 117 U/L (45-117) 11/27/16 15:13 Total Protein 7.1 g/dl (6.4-8.2) 11/27/16 15:13 Albumin 3.6 g/dl (3.4-5.0) 11/27/16 15:13 Current Medications Generic Name Dose Route Start Last Admin Trade Name Freq PRN Reason Stop Dose Admin Hydromorphone HCl 1 mg 11/27/16 18:44 11/29/16 06:55 Dilaudid Injection - IVPB 1 mg Q6H PRN Administration PAIN Sodium Chloride 1,000 mls @ 100 mls/hr 11/27/16 18:45 11/28/16 18:46 Normal Saline - IV 100 mls/hr ASDIR MIKE Administration Pantoprazole Sodium 100 mls @ 200 mls/hr 11/27/16 19:15 11/28/16 09:53 Protonix 40mg Ivpb (Pre-Docked) IVPB 200 mls/hr DAILY MIKE Administration Insulin Aspart 1 vial 11/27/16 22:00 11/29/16 07:21 Novolog Vial Sliding Scale - SQ Not Given ACHS MIKE Protocol Medication Instructions Recorded Insulin Lispro [Humalog] 0 unit SQ QID PRN 02/10/14 Alprazolam [Xanax] 0.25 mg PO HS PRN #7 tablet 02/12/14 Insulin (Levemir) [Levemir Flexpen 0 units SQ DAILY 12/05/14 -] Levofloxacin [Levaquin] 750 mg PO DAILY #10 tab 11/04/16 Magnesium Oxide [Mag-Ox -] 800 mg PO DAILY #4 tablet 11/04/16 Ranitidine [Zantac -] 150 mg PO DAILY #30 tablet 11/04/16 Amitriptyline HCl [Elavil -] 25 mg PO DAILY 11/27/16 Omeprazole [Prilosec] 40 mg PO DAILY 11/27/16 ASSESSMENT AND PLAN: This is a 61-year-old woman with a history of cirrhosis, hepatitis C, alcohol abuse, type 2 DM, GERD, anxiety, HTN, thrombocytopenia who comes to the ER because of epigastric pain with nausea and vomiting. # Thrombocytopenia Chronic with UGI bleed due to possible gastritis , and thrombocytopenia due to liver disease , s/p one single donor transfusion of platelets. from 18K-->15K-->24K post transfusion # Epigastric pain resolved, no further GI bleed . Follow up as an outpatient with GI. Aa per advised Ms. Nguyễn that she is being terminated from the office since she is noncompliant and continued alcohol abuse was offered to follow-up at the [facility] GI clinic [phone] # Elevated LFTs/Bilirubin further w/u as an outpatient. # Liver Cirrhosis due Hepatitis C, Hx of alcohol and cocaine abuse # Hepatitis C # Hypertension # Type 2 diabetes mellitus Hold Levemir, Fingersticks with Novolog sliding scale # GERD # Anxiety Continue Xanax as needed # History of alcohol and cocaine abuse Follow with Follow with GI clinic no drinking alcohol or any drugs abuse was suggested to the patient. s/p platelets transfusion
--- NOTE | 2016-11-29 11:48 | DS ---
Physical Exam: SUBJECTIVE: Patient seen and examined. She doesn't have any complaints. She denies more episodes of hematemesis, melena, N/V, abdominal pain. OBJECTIVE: Vital Signs Period Temp Pulse Resp BP Sys/Dueñas Pulse Ox Last 24 Hr 98.2 F-98.8 F 91-95 20-20 116-123/65-73 98 PHYSICAL EXAM GENERAL: The patient is awake, alert, and fully oriented, in no acute distress. HEAD: Normal with no signs of trauma. EYES: PERRL, extraocular movements intact, sclera icteric, conjunctiva clear. ENT: Ears normal, nares patent, oropharynx clear without exudates, moist mucous membranes. NECK: Trachea midline, full range of motion, supple. LUNGS: Breath sounds equal, clear to auscultation bilaterally, no wheezes, no crackles, no accessory muscle use. HEART: Regular rate and rhythm, S1, S2 without murmur, rub or gallop. ABDOMEN: Soft, nontender, nondistended, normoactive bowel sounds, no guarding, no rebound, no hepatosplenomegaly, no masses. EXTREMITIES: 2+ pulses, warm, well-perfused, no edema. NEUROLOGICAL: Cranial nerves II through XII grossly intact. Normal speech, gait not observed. PSYCH: Normal mood, normal affect. SKIN: Warm, dry, normal turgor, no rashes or lesions noted, breast implants B/L. LABS Laboratory Results - last 24 hr 11/28/16 11/28/16 11/28/16 11:17 14:00 16:50 WBC 1.8 L RBC 3.21 L Hgb 9.6 L Hct 29.0 L MCV 90.4 MCHC 33.1 RDW 16.1 H Plt Count 18 L* D MPV 9.2 D Sodium Potassium Chloride Carbon Dioxide Anion Gap BUN Creatinine POC Glucometer 140.30102 Random Glucose Calcium Blood Type O POSITIVE Antibody Screen Negative 11/28/16 11/28/16 11/29/16 17:16 23:47 07:01 WBC RBC Hgb Hct MCV MCHC RDW Plt Count MPV Sodium Potassium Chloride Carbon Dioxide Anion Gap BUN Creatinine POC Glucometer 137.09012 175.96745 105.22647 Random Glucose Calcium Blood Type Antibody Screen 11/29/16 11/29/16 07:15 07:15 WBC 1.5 L RBC 3.02 L Hgb 9.0 L Hct 27.4 L MCV 90.8 MCHC 32.9 RDW 15.6 Plt Count 24 L* D MPV 9.2 Sodium 141 Potassium 3.7 D Chloride 107 Carbon Dioxide 24 Anion Gap 10 BUN 14 D Creatinine 0.7 POC Glucometer Random Glucose 83 D Calcium 8.2 L Blood Type Antibody Screen HOSPITAL COURSE: Date of Admission:11/27/16 Date of Discharge: 11/29/16 Minutes to complete discharge: 40 Discharge Summary Reason For Visit: GASTRITIS Current Active Problems Dehydration (Acute) Gastritis (Acute) Hypomagnesemia (Acute) Intractable vomiting (Acute) Pancytopenia (Acute) Prolonged QT interval (Acute) Thrombocytopenia (Acute) Hospital Course: The patient is a 61 year old female with a significant PMH of cirrhosis, hepatitis C, DM type 2, GERD, hepatic encephalopathy, thrombocytopenia, anxiety , polysubstance abuse ( cocaine, opiates, alcohol) who presents with nausea, vomiting and epigastric pain for the past week. She started vomiting clear liquid a week ago and 3 days ago she had multiple episodes of brownish vomit. No more episodes since then. The patient describes her epigastric pain as a burning sensation that radiates up to her throat. She denies change in bowel habits, blood in stool, diarrhea, constipation, back pain. She reports that her last bowel movement was yesterday and it was normal. The patient denies fever, chills, chest pain, cough or shortness of breath. She denies dysuria, increased urgency, frequency. Hospital course: SHe is admitted for upper GI bleeding. We started Protonix IV, NPO, IVF, CBC, BMP, GI consultation, counseled about avoiding alcohol, illicid drugs. The pt has pancytopenia, her PLT were down to 18. We transfused 1 u of platelets. It increased to 24. We also corrected her hypomagnesemia. Her WBC decreased to 1.5. She didn't have more episodes of hematemesis in the hospital. We recommended outpatient follow up with Oncology and GI. Condition: Improved - Instructions Diet, Activity, Other Instructions: Follow up at the [facility] GI clinic [phone] in a week. Please see Dr. Walter in a week and follow up with your PCP in a week. If you have bleeding, diarrhea, constipation, dizziness, lightheadedness, chest pain, SOB come to Emergency Room as soon as possible. Referrals: Marshal Rossi MD [Primary Care Provider] - Lawrence Walter MD [Staff Physician] - Disposition: HOME - Home Medications Comprehensive Discharge Medication List: Ambulatory Orders Insulin Lispro [Humalog] 0 unit SQ QID PRN 02/10/14 Alprazolam [Xanax] 0.25 mg PO HS PRN #7 tablet 02/12/14 Insulin (Levemir) [Levemir Flexpen -] 0 units SQ DAILY 12/05/14 Levofloxacin [Levaquin] 750 mg PO DAILY #10 tab 11/04/16 Magnesium Oxide [Mag-Ox -] 800 mg PO DAILY #4 tablet 11/04/16 Ranitidine [Zantac -] 150 mg PO DAILY #30 tablet 11/04/16 Amitriptyline HCl [Elavil -] 25 mg PO DAILY 11/27/16 Omeprazole [Prilosec] 40 mg PO DAILY 11/27/16 Problem List - Problems (1) Gastritis Code(s): K29.70 - GASTRITIS, UNSPECIFIED, WITHOUT BLEEDING Qualifiers: Gastritis type: alcoholic Chronicity: acute Gastritis bleeding: with bleeding Qualified Code(s): K29.21 - Alcoholic gastritis with bleeding (2) Pancytopenia Code(s): D61.818 - OTHER PANCYTOPENIA (3) Thrombocytopenia Code(s): D69.6 - THROMBOCYTOPENIA, UNSPECIFIED (4) Alcoholic hepatitis Code(s): K70.10 - ALCOHOLIC HEPATITIS WITHOUT ASCITES (5) GERD (gastroesophageal reflux disease) Code(s): K21.9 - GASTRO-ESOPHAGEAL REFLUX DISEASE WITHOUT ESOPHAGITIS This patient is new to me today: No Emergency Visit: Yes ED Registration Date: 11/27/16 Care time: The patient presented to the Emergency Department on the above date and was hospitalized for further evaluation of their emergent condition. Critical Care patient: No - Discharge Referral Referred to [facility] Med P.C.: No
--- NOTE | 2016-11-29 13:48 | PN ---
Progress Note (short form) - Note Progress Note: GASTROENTEROLOGY PATIENT DISCHARGED BEFORE CONSULTATION COULD BE DONE DANIEL RUIZ MD
== END 2016-11-29 12:23 | disposition home or self-care (01) ==
LOC: JER 14:48 → JERBED 17:59
PROVIDERS: ADMIT Internal Medicine; ATTEND Internal Medicine
DX: K29.60 Other gastritis without bleeding (principal); K21.9 Gastro-esophageal reflux disease without esophagitis; E11.9 Type 2 diabetes mellitus without complications; B19.20 Unspecified viral hepatitis C without hepatic coma; D69.6 Thrombocytopenia, unspecified; F41.9 Anxiety disorder, unspecified; F14.10 Cocaine abuse, uncomplicated; F10.10 Alcohol abuse, uncomplicated; K74.60 Unspecified cirrhosis of liver; E83.42 Hypomagnesemia; D61.818 Other pancytopenia; F11.10 Opioid abuse, uncomplicated; Z79.4 Long term (current) use of insulin; K70.10 Alcoholic hepatitis without ascites
CPT/HCPCS: 36415; 36430; 71020-TC; 76700-TC; 80048; 80053; 80307; 81003; 82105; 82272; 83690; 83735; 85025; 85027; 85610; 86850; 86900; 86901; 93005; 93010; 99285-25; G0378; P9034